=== PATIENT | female | born 1955 | race Caucasian/White ===

== ENCOUNTER → 2016-11-18 | Outpatient (CLI) | payer OTHER ==
[~2016-11-18] MED LIST: CONJ0.3T3 PO; GABA800T PO; NSNN50; OMEP40CA PO; OXYC1TAB3 PO; SERT50TA PO; SIMV20TA2 PO; [UNRECOGNIZED DRUG - CODE] PO
--- NOTE | 2016-11-18 16:05 | MAMMOGRAPHY REPORT ---
BILATERAL DIGITAL SCREENING MAMMOGRAM TOMOSYNTHESIS WITH CAD: 11/18/2016 CLINICAL HISTORY: Routine screening. Patient has no complaints. TECHNIQUE: Breast tomosynthesis in addition to standard 2D mammography was performed. Current study was also evaluated with a Computer Aided Detection (CAD) system. COMPARISON: Comparison is made to exams dated: 10/17/2015 mammogram, 10/15/2014 mammogram, 10/13/2013 ma mmogram, 10/17/2012 mammogram, 10/12/2012 mammogram, and 10/26/2013 mammogram - [facility]ter. BREAST COMPOSITION: The tissue of both breasts is heterogeneously dense, which may obscure small ma sses. FINDINGS: The parenchymal pattern is similar to prior exams. There are a few stable benign-appeari ng calcifications within the right breast. No developing mass, architectural distortion or cluster of suspicious microcalcifications is seen in either breast. IMPRESSION: ACR BI-RADS CATEGORY 2: BENIGN There is no mammographic evidence of malignancy. A 1 year screening mammogram is recommended. The p atient will receive written notification of the results. Approximately 10% of breast cancers are not detected with mammography. A negative mammographic repor t should not delay biopsy if a clinically suggestive mass is present. Shannan Gonzales M.D. ay/:11/18/2016 16:00:54 Molder Closed Molds: Phyllis GROSSMAN(Jacques)(M), [facility] letter sent: Normal 1/2 BI-RADS Code: ACR BI-RADS Category 2: Benign
== END | disposition home or self-care (01) ==
LOC: C.MAMM 13:07
PROVIDERS: ATTEND Obstetrics & Gynecology
DX: Z12.31 Encounter for screening mammogram for malignant neoplasm of breast (principal)

== ENCOUNTER → 2017-11-22 | Outpatient (CLI) | payer OTHER ==
--- NOTE | 2017-11-23 07:46 | MAMMOGRAPHY REPORT ---
BILATERAL DIGITAL SCREENING MAMMOGRAM TOMOSYNTHESIS WITH CAD: 11/22/2017 CLINICAL HISTORY: Routine screening. Patient has no complaints. TECHNIQUE: Breast tomosynthesis in addition to standard 2D mammography was performed. Current study was also evaluated with a Computer Aided Detection (CAD) system. COMPARISON: Comparison is made to exams dated: 11/18/2016 mammogram, 10/17/2015 mammogram, 10/15/2014 ma mmogram, 10/26/2013 mammogram, 10/13/2013 mammogram, and 10/17/2012 mammogram - [facility]. BREAST COMPOSITION: There are scattered areas of fibroglandular density in both breasts. FINDINGS: There is a possible area of architectural distortion in the anterior left breast along the posterior nipple line on the MLO view by 4.6 cm. Although this could represent normal overlapping t issue, as it is not seen on the CC projection or corresponding tomosynthesis images, additional spot compression tomosynthesis views and possible ultrasound is recommended. There are multiple bilateral circumscribed subcentimeter masses scattered in the breasts, fluctuating in size comparing to prior mammograms most likely representing fluctuating cysts. No other suspiciou s mass, architectural distortion or cluster of microcalcifications is seen. IMPRESSION: ACR BI-RADS CATEGORY 0: INCOMPLETE EVALUATION: NEED ADDITIONAL IMAGING EVALUATION The possible area of architectural distortion in the anterior left breast along the posterior nipple line on the MLO view needs additional imaging evaluation. The patient will be called to schedule an appointment. Approximately 10% of breast cancers are not detected with mammography. A negative mammographic report should not delay biopsy if a clinically suggestive mass is present. Shannan Gonzales M.D. ay/:11/22/2017 14:07:24 Archaeologist: Shauna GROSSMAN(Jacques)(Nicole)(BD), [facility] letter sent: Addl Imaging 0 BI-RADS Code: ACR BI-RADS Category 0: Incomplete Evaluation: Need Additional Imaging Evaluation
== END | disposition home or self-care (01) ==
LOC: C.MAMM 13:24
PROVIDERS: ATTEND Obstetrics & Gynecology
DX: Z12.31 Encounter for screening mammogram for malignant neoplasm of breast (principal); R92.8 Other abnormal and inconclusive findings on diagnostic imaging of breast

== ENCOUNTER → 2017-12-01 | Outpatient (CLI) | payer OTHER ==
--- NOTE | 2017-12-01 15:31 | MAMMOGRAPHY REPORT ---
UNILATERAL LEFT DIGITAL DIAGNOSTIC MAMMOGRAM TOMOSYNTHESIS AND TARGETED LEFT ULTRASOUND: 12/01/2017 CLINICAL HISTORY: 62-year-old woman called back from screening mammography for a possible area of arc hitectural distortion in the left breast along the posterior nipple line on the MLO view. TECHNIQUE: Spot compression tomosynthesis left CC and MLO views were obtained. COMPARISON: Comparison is made to exams dated: 11/22/2017 mammogram, 11/18/2016 mammogram, 10/17/2015 m ammogram, 10/15/2014 mammogram, 10/26/2013 mammogram, and 10/12/2012 mammogram - [facility]. BREAST COMPOSITION: There are scattered areas of fibroglandular density in the left breast. FINDINGS: There is effacement of the questionable area of architectural distortion in the left breast along the posterior nipple line on the spot compression MLO view. No definite persistent area of di stortion is seen in either the CC or MLO projection. There is an irregular nodular asymmetry in the lateral left breast on the spot compression cc view, located 5.2 cm distal to the nipple which measur es 6.3 mm. Further evaluation with ultrasound was performed. Other partially circumscribed and obsc ured masses are scattered throughout the left breast including a 6.1 mm nodular asymmetry slightly la teral to the posterior nipple line on the spot compression cc view, and also a 6 mm circumscribed nod ular asymmetry versus mass in the medial left breast, located 5.5 cm distal to the nipple. Targeted ultrasound was performed throughout the left breast. Scattered anechoic and hypoechoic prob able cysts are seen throughout the left breast including a 4 mm anechoic circumscribed cyst in the 10 :00 left breast, 3 cm from the nipple, another probable comp located cyst in the 12:00 left breast, 2 cm from the nipple measuring 4.4 mm, and a third probable complicated cyst in the 4:00 periareolar l eft breast measuring 3.7 mm. No suspicious solid mass is identified on targeted ultrasound. IMPRESSION: ACR-BI-RADS CATEGORY 3: PROBABLY BENIGN, TARGETED ULTRASOUND ACR-BI-RADS CATEGORY 3: PRO BABLY BENIGN 1. There is effacement of the questional area of architectural distortion along the posterior nipple line on the MLO view, and no suspicious sonographic correlate identified. This most likely represen aysha normal overlapping fibrolinear markings and blood vessels, and is considered benign. No further close follow-up is needed at this time. 2. Scattered nodularity with possible subcentimeter lobulated masses seen in the left breast both me dially and laterally on the spot compression tomosynthesis CC views for which additional targeted ult rasound demonstrates probable simple and complicated cysts. However, a short interval follow-up left diagnostic tomosynthesis mammogram and repeat targeted ultrasound is recommended to ensure stability in 6 months. These results and recommendations were discussed with the patient at the time of the exam. Approximately 10% of breast cancers are not detected with mammography. A negative mammographic report should not delay biopsy if a clinically suggestive mass is present. Shannan Gonzales M.D. ay/:12/01/2017 13:31:23 Armhole Baster Jumpbasting: Phyllis BEYER)(Nicole), [facility] letter sent: Follow Up Recommended 3 BI-RADS Code: ACR-BI-RADS Category 3: Probably Benign Ultrasound BI-RADS: ACR-BI-RADS Category 3: Pr obably Benign
== END | disposition home or self-care (01) ==
LOC: C.MAMM 12:59
PROVIDERS: ATTEND Obstetrics & Gynecology
DX: N64.89 Other specified disorders of breast (principal)

== ENCOUNTER → 2017-12-17 | Outpatient (CLI) | payer OTHER | END | disposition home or self-care (01) | LOC: C.PAPS 13:30 | PROVIDERS: ATTEND Obstetrics & Gynecology | DX: Z12.4 Encounter for screening for malignant neoplasm of cervix (principal) ==

== ENCOUNTER → 2017-12-29 | Day surgery (SDC) | payer OTHER ==
[2017-12-28 10:55] VITALS: Ht 154.9 cm; Wt 80.0 kg
[~2017-12-29] VITALS: Ht 154.9 cm; Wt 80.0 kg
[~2017-12-29] MED LIST changes: +BACL10TA PO; +BENZ100C84 PO; +FLUT50SP45 NAE; +HYDR-3983 PO; +LIDOCAINE HCL 2% 2 ML VIAL (20MG/ML) ONE; +MELO-83 PO; +MIDAZOLAM HCL 1 MG/ML 2ML VIAL ONE; +MOME6000 NAE; +MULT1CHW37 PO; +NAPR-1169 PO; -NSNN50; +OMEP-334 PO; -OMEP40CA PO; +ONDANSETRON INJ 2 MG/ML 2 ML VIAL ONE; -OXYC1TAB3 PO; +OXYC20TA50 PO; +PROPOFOL IV EMULSION 10 MG/ML 20 ML VIAL ONE; +RANI300T2 PO; +SERT-234 PO; -SERT50TA PO; +VALA1TAB2 PO; -[UNRECOGNIZED DRUG - CODE] PO
--- NOTE | 2017-12-29 09:19 | Endo History and Physical ---
History & Physical Date of Service: December 29, 2017. Chief Complaint: Referring Physician: History of Present Illness 62 yo presenting for screening colonoscopy Past Surgical History Hx Cardiac Surgery: No Hx Internal Defibrillator: No Hx Pacemaker: No Hx Abdominal Surgery: No Hx of Implantable Prosthesis: No Hx Post-Op Nausea and Vomiting: No Hx Cancer Surgery: No Hx Thoracic Surgery: No Hx Orthopedic: Yes (R HAND, R RING FINGER, LOWER BACK SURGERY, SPINAL STIMULATOR PLACED) Hx Urinary Tract Surgery: No Family History None Social History Smoking Status: Former Smoker Hx Substance Use: Yes (USES OXYCONTIN DAILY, NORCO PRN FOR PAIN) Hx Alcohol Use: No Allergies Coded Allergies: Sulfa Drugs (Verified Allergy, Intermediate, HIVES, 12/29/17) Current Medications Reported Home Medications Medications Dose Route/Sig Max Daily Dose Days Date Category Dose Instructions Naprosyn (Naproxen) 500 Mg Tab 500 Mg PO BID PRN 12/28/17 Reported Multi Adult Gummies (Multiple Vitamins W/ Minerals) 1 Chw Chw 2 Tab PO DAILY 12/28/17 Reported Meloxicam 15 Mg Tab 1 Tab PO DAILY 12/28/17 Reported Allergy Nasal [place] [address] (Fluticasone Propionate (Nasal)) 50 Mcg/Act Spr 2 Sprays NIDHI DAILY 12/28/17 Reported Tessalon Perles (Benzonatate) 100 Mg Cap 1 Cap PO TID PRN 10 12/28/17 Reported Lioresal (Baclofen) 10 Mg Tab 10 Mg PO TID 12/28/17 Reported Valtrex (Valacyclovir Hcl) 1 Gm Tab 2,000 Mg PO Q12 PRN 12/28/17 Reported Zantac (Ranitidine HCl) 300 Mg Tab 1 Tab PO HS 30 12/28/[address] (Omeprazole) 40 Mg Cap 1 Cap PO QAM 12/28/17 Reported [place] 7.5MG/325MG (Acetaminophen/Hydrocodone Bitart) Tab 1 Tab PO TID PRN 12/28/17 Reported PRN PAIN Oxycontin (Oxycodone Hcl) 20 Mg Tab 20 Mg PO Q12 12/28/17 Reported Mometasone Furoate (Mometasone Furoate (Nasal)) 50 Mcg/Act Spr 2 Sprays NIDHI DAILY 12/28/17 Reported Zoloft (Sertraline HCl) 100 Mg Tab 200 Mg PO DAILY 12/28/17 Reported Neurontin (Gabapentin) 800 Mg Tab 800 Mg PO TID 09/12/15 Reported Zocor (Simvastatin) 20 Mg Tab 20 Mg PO QPM 03/12/11 Reported Prempro 0.3MG/1.5MG (Estrogens Conj/Medroxyprogest Acet) Tab 1 Tab PO DAILY 03/12/11 Reported Vital Signs Weight (Kilograms): 80 Height (Feet): 5 Height (Inches): 1 Physical Exam General Appearance: WD/WN, no apparent distress Respiratory/Chest: Respiratory effort: no dyspnea Auscultation: breath sounds normal, CTA except as noted Cardiovascular: Apical Impulse: not displaced Heart Auscultation: RRR, normal S1, normal S2 Abdomen: Bowel Sounds: normal Inspection & Palpation: soft, non-distended Assessment and Plan 62 yo presenting for screening colonoscopy
--- NOTE | 2017-12-29 10:38 | GI REPORT ---
Patient Name: Huong Huerta Procedure Date: 12/29/2017 9:59 AM Date of : 1955 Admit Type: Outpatient Age: 62 Gender: Female Attending MD: Lucius Kumar MD Procedure: Colonoscopy Providers: Lucius Kumar MD Referring MD: Shawn Leal Indications: Screening for colorectal malignant neoplasm Medicines: Monitored Anesthesia Care Complications: No immediate complications. Estimated blood loss: None. Estimated Blood Loss: Estimated blood loss: none. Procedure: Pre-Anesthesia Assessment: - Pre-Anesthesia Assessment: - Prior to the procedure, a History and Physical was performed, and patient medications, allergies and sensitivities were reviewed. The patient's tolerance of previous anesthesia was reviewed. Please see [employer] for complete details. - The risks and benefits of the procedure and the sedation options and risks were discussed with the patient. All questions were answered and informed consent was obtained. - Patient identification and proposed procedure were verified prior to the procedure by the physician and the nurse. The procedure was verified in the pre-procedure area in the procedure room. After obtaining informed consent, the endoscope was passed carefully and meticuously under direct vision and only advanced when the lumen was clearly identified, C02 insuflation was utilized throughout the entirity of the procedure. Throughout the procedure, the patient's blood pressure, pulse, and oxygen saturations were monitored continuously. After I obtained informed consent, the scope was passed under direct vision. Throughout the procedure, the patient's blood pressure, pulse, and oxygen saturations were monitored continuously. The Scope was introduced through the anus and advanced to the terminal ileum, with identification of the appendiceal orifice and IC valve. The colonoscopy was performed without difficulty. The patient tolerated the procedure well. The quality of the bowel preparation was poor. Findings: A 7 mm polyp was found in the ascending colon. The polyp was sessile. The polyp was removed with a cold snare. Resection and retrieval were complete. A 3 mm polyp was found in the descending colon. The polyp was sessile. The polyp was removed with a jumbo cold forceps. Resection and retrieval were complete. A 3 mm polyp was found in the sigmoid colon. The polyp was sessile. The polyp was removed with a cold snare. Resection and retrieval were complete. Multiple small-mouthed diverticula were found in the sigmoid colon. The terminal ileum appeared normal. Internal hemorrhoids were found during retroflexion. The exam was otherwise without abnormality on direct and retroflexion views. Impression: - Preparation of the colon was poor. - One 7 mm polyp in the ascending colon, removed with a cold snare. Resected and retrieved. - One 3 mm polyp in the descending colon, removed with a jumbo cold forceps. Resected and retrieved. - One 3 mm polyp in the sigmoid colon, removed with a cold snare. Resected and retrieved. - Diverticulosis in the sigmoid colon. - The examined portion of the ileum was normal. - Internal hemorrhoids. - The examination was otherwise normal on direct and retroflexion views. Recommendation: - Written discharge instructions were provided to the patient. - Discharge patient to home (with escort). - Repeat colonoscopy in within 1 year for surveillance based on pathology results and poor prep. - Return to referring physician as previously scheduled. Lucius Kumar MD 12/29/2017 10:37:56 AM This report has been signed electronically. Note Initiated On: 12/29/2017 9:59 AM Number of Addenda: 0 I attest to the content of the Intraoperative Record and orders documented therein, exceptions below {[id number]}
--- NOTE | 2017-12-29 10:48 | Discharge Instructions ---
Endoscopy Patient Instructions Date / Procedure(s) Performed December 29, 2017. Colonoscopy Allergy Information Coded Allergies: Sulfa Drugs (Verified Allergy, Intermediate, HIVES, 12/29/17) Discharge Date / Findings December 29, 2017. Findings: A 7 mm polyp was found in the ascending colon. The polyp was sessile. The polyp was removed with a cold snare. Resection and retrieval were complete. A 3 mm polyp was found in the descending colon. The polyp was sessile. The polyp was removed with a jumbo cold forceps. Resection and retrieval were complete. A 3 mm polyp was found in the sigmoid colon. The polyp was sessile. The polyp was removed with a cold snare. Resection and retrieval were complete. Multiple small-mouthed diverticula were found in the sigmoid colon. The terminal ileum appeared normal. Internal hemorrhoids were found during retroflexion. The exam was otherwise without abnormality on direct and retroflexion views. Impression: - Preparation of the colon was poor. - One 7 mm polyp in the ascending colon, removed with a cold snare. Resected and retrieved. - One 3 mm polyp in the descending colon, removed with a jumbo cold forceps. Resected and retrieved. - One 3 mm polyp in the sigmoid colon, removed with a cold snare. Resected and retrieved. - Diverticulosis in the sigmoid colon. - The examined portion of the ileum was normal. - Internal hemorrhoids. - The examination was otherwise normal on direct and retroflexion views. Recommendation: - Written discharge instructions were provided to the patient. - Discharge patient to home (with escort). - Repeat colonoscopy in within 1 year for surveillance based on pathology results and poor prep. - Return to referring physician as previously scheduled. Medication Instructions Stopped Medication(s): last dose Meloxicam wednesday Provider Instructions Activity Restrictions - No exercising or heavy lifting for 24 hours. - Do not drink alcohol the day of the procedure. - Do not drive a car or operate machinery until the day after the procedure. - Do not make any important decisions or sign important papers in 24 hours after the procedure. Following Day: - Return to full activity which may include returning to work/school. Diet Start your diet with liquids and light foods (jello, soup, juice, toast). Then eat your usual diet if not nauseated. Treatment For Common After Affects For mild abdominal pain, bloating, or excessive gas: - Rest - Eat lightly - Lie on right side Follow-Up Information Follow-up with Dr. Shawn Leal as scheduled Anesthesia Information What You Should Know You have had a procedure that required some medicine to reduce anxiety and discomfort. This treatment is called moderate sedation. After receiving the treatment, you may be sleepy, but you will be able to breathe on your own. The effects of the treatment may last for several hours. Follow these instructions along with Activity/Diet recommendations noted above: * Do NOT do anything where dizziness or clumsiness would be dangerous. * Rest quietly at home today, then you can be up and about tomorrow. * Have a responsible person stay with you the rest of today. * You may have had an I.V. today. If so, you may take the dressing off later today. Recommendations Call your doctor if: * Trouble breathing * Continuous vomiting for more than 24 hours * Temperature above 101 degrees * Severe abdominal pain or bloating * Pain not relieved by pain medicine ordered * There is increased drainage or redness from any incision * A large amount of rectal bleeding greater than 2-3 tablespoons. (If you had a polyp/s removed or have hemorrhoids, a small amount of blood - from the rectum is to be expected.) * You have any unanswered questions or concerns. IN THE EVENT OF A SERIOUS EMERGENCY, GO TO THE NEAREST EMERGENCY ROOM Your discharge instructions were prepared by provider Lucius Kumar. Patient Instructions Signature Page Huong Huerta Patient (or Guardian) Signature/Date: I have read and understand the instructions given to me by my caregivers. Caregiver/RN/Doctor Signature/Date: The above-named patient and/or guardian has received patient instructions on this date. + Original Patient Signature Page (only) stays with chart. Please make copy for patient.
--- NOTE | 2017-12-29 11:04 | Anesthesiology Progress Note ---
Anesthesia Post Op Note Date & Time December 29, 2017 at 11:04 Vital Signs Pain Intensity: 0 Vital Signs Past 12 Hours Date Time Temp Pulse Resp B/P (MAP) Pulse Ox O2 Delivery O2 Flow Rate FiO2 12/29/17 10:53 83 16 123/67 (85) 94 Room Air 12/29/17 10:38 85 16 142/84 (103) 95 Room Air 12/29/17 09:25 36.5 88 16 139/85 (103) 94 Room Air Notes Mental Status: alert / awake / arousable, participated in evaluation Pt Amnestic to Procedure: Yes Nausea / Vomiting: adequately controlled Pain: adequately controlled Airway Patency, RR, SpO2: stable & adequate BP & HR: stable & adequate Hydration State: stable & adequate Anesthetic Complications: no major complications apparent
[2017-12-29 11:08] VITALS: BP 138/75; PULSE 83; O2SAT 94
== END | disposition home or self-care (01) ==
LOC: C.GI 08:53
PROVIDERS: ATTEND Internal Medicine
DX: Z12.11 Encounter for screening for malignant neoplasm of colon (principal); D12.2 Benign neoplasm of ascending colon; D12.4 Benign neoplasm of descending colon; D12.5 Benign neoplasm of sigmoid colon; G89.29 Other chronic pain; F41.9 Anxiety disorder, unspecified; K21.9 Gastro-esophageal reflux disease without esophagitis; Z87.891 Personal history of nicotine dependence; Z88.2 Allergy status to sulfonamides; Z79.899 Other long term (current) drug therapy; K57.30 Diverticulosis of large intestine without perforation or abscess without bleeding; K64.8 Other hemorrhoids